=== PATIENT | female | born 1975 | race Hispanic/Latino ===

== ENCOUNTER 2021-03-19 11:00 | Emergency (ER) | payer SELFPAY ==
[2021-03-19 11:20] LABS: Urine Blood 3+ (Negative); Urine Glucose Negative (Negative); Urine Protein Negative (Negative); Urine Specific Gravity 1.015 (1.005-1.030)
--- NOTE | 2021-03-19 11:59 | RAD REPORT ---
EXAM DESCRIPTION: CT - Abdomen Pelvis Wo Contrast - 03/19/2021 11:50 am CLINICAL HISTORY: Abdominal pain. ABD PAIN COMPARISON: No comparisons TECHNIQUE: CT imaging of the abdomen and pelvis was performed without contrast. Solid organ, bowel a nd vascular assessment is limited due to lack of IV and oral contrast. All CT scans are performed using dose optimization technique as appropriate and may include automated exposure control or mA/KV adjustment according to patient size. FINDINGS: The lower lung raza are clear. The liver, spleen, pancreas, adrenal glands and left kidney are within normal limits for a limited no n-contrast examination.The right kidney is moderately atrophic. Cholecystectomy. No bowel obstruction, free air, free fluid or abscess. The appendix is normal. The osseous structures are within normal limits. IMPRESSION: No acute intra-abdominal or pelvic findings. A limited non-contrast examination was performed as detailed.
[2021-03-19 12:11] LABS: Basophils % 0.4 % (0-1.3); Hematocrit 40.5 % (36.0-45.0); Lymphocytes % 36.9 % (15.3-44.8); MPV 7.8 fL (7.6-11.3); RBC Red Blood Cell Count 4.82 M/uL (3.86-4.86)
[2021-03-19 12:40] LABS: Albumin 3.9 g/dL (3.4-5.0); Bilirubin Direct 0.2 mg/dL (0-0.2); Bilirubin Total 0.7 mg/dL (0.2-1.0); Potassium 4.2 mmol/L (3.5-5.1); Protein, Total 7.9 g/dL (6.4-8.2)
[2021-03-19] MEDS ORDERED: KETOROLAC 30 MG/ML INJ ONE (12:58)
--- NOTE | 2021-03-19 13:04 | EDPHYS ---
Physician Documentation [facility] Name: Abigail Jeffers Age: 45 yrs Sex: Female : 1975 Arrival Date: 03/19/2021 Time: 11:06 Bed 6 Private MD: ED Physician Mando Crouch HPI: 03/19 11:55 This 45 yrs old Female presents to ER via Ambulatory with complaints of Back Pain. jr8 11:55 This is a 45-year-old female patient that presented to the emergency room with sudden jr8 onset of low back pain radiating to the right abdomen. Patient stated that she is currently on her menstrual cycle and has been having heavier periods than normal. Denies any nausea, vomiting, diarrhea, fevers. Patient stated that she has had irregular heavier menstrual cycles as of recent and has seen her primary care for this and was told that she is premenopausal. Denies having back pain in the past with her other symptoms.. 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 - Social history:: Smoking status: Patient denies any tobacco usage or history of. ROS: 11:55 Cardiovascular: Negative for chest pain, palpitations, and edema, Respiratory: Negative jr8 for shortness of breath, cough, wheezing, and pleuritic chest pain, MS/Extremity: Negative for injury and deformity, Skin: Negative for injury, rash, and discoloration, Neuro: Negative for headache, weakness, numbness, tingling, and seizure. 11:55 Abdomen/GI: Positive for abdominal pain, Negative for nausea, vomiting, and diarrhea. 11:55 Back: Positive for pain at rest, pain with movement. 11:55 : Positive for vaginal bleeding, menstrual abnormality. Exam: 11:55 Cardiovascular: Regular rate and rhythm with a normal S1 and S2. No gallops, murmurs, jr8 or rubs. Normal PMI, no JVD. No pulse deficits. Respiratory: Lungs have equal breath sounds bilaterally, clear to auscultation and percussion. No rales, rhonchi or wheezes noted. No increased work of breathing, no retractions or nasal flaring. Skin: Warm, dry with normal turgor. Normal color with no rashes, no lesions, and no evidence of cellulitis. MS/ Extremity: Pulses equal, no cyanosis. Neurovascular intact. Full, normal range of motion. Neuro: Awake and alert, GCS 15, oriented to person, place, time, and situation. Cranial nerves II-XII grossly intact. Motor strength 5/5 in all extremities. Sensory grossly intact. 11:55 Constitutional: The patient appears alert, awake, in obvious pain. 11:55 Abdomen/GI: Inspection: abdomen appears normal, Bowel sounds: active, all quadrants, Palpation: soft, in all quadrants, moderate abdominal tenderness, in the suprapubic area and right lower quadrant, mass, is not appreciated, rebound tenderness, is not appreciated, voluntary guarding, is not appreciated, involuntary guarding, is not appreciated, no appreciated organomegaly, Indicators: McBurney's point is not tender, Dodson's sign is negative, Rovsing's sign is negative. 11:55 Back: pain, that is moderate, ROM is painful, with all movement, CVA tenderness, is absent, vertebral tenderness, is not appreciated. Vital Signs: 11:13 BP 153 / 90; Pulse 74; Resp 16; Temp 97.8; Pulse Ox 100% on R/A; Weight 67.13 kg; iw Height 5 ft. 2 in. (157.48 cm); Pain 10/10; 12:45 BP 123 / 69; Pulse 66; Resp 17; Pulse Ox 100% ; bp 13:22 BP 120 / 75; Pulse 66; Resp 17; Pulse Ox 100% ; bp 11:13 Body Mass Index 27.07 (67.13 kg, 157.48 cm) iw MDM: 11:22 Patient medically screened. jr8 13:02 Data reviewed: vital signs, nurses notes, lab test result(s), radiologic studies, CT jr8 scan. Data interpreted: Pulse oximetry: on room air is 100 %. Interpretation: normal. Counseling: I had a detailed discussion with the patient and/or guardian regarding: the historical points, exam findings, and any diagnostic results supporting the discharge/admit diagnosis, lab results, radiology results, the need for outpatient follow up, an OB/Gyne specialist, to return to the emergency department if symptoms worsen or persist or if there are any questions or concerns that arise at home. Special discussion: Based on the patient's Hx, exam, and Dx evaluation, there is no indication for emergent surgery or inpatient Tx. It is understood by the patient/guardian that if the Sx's persist or worsen they need to return immediately for re-evaluation. ED course: Discussed with patient and that this is most likely dysmenorrhea. No other acute abnormalities found on the CT scan or lab work. 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 Patient family good with this at this time and will come back if she were to worsen at any point time.. 03/19 11:20 Order name: Basic Metabolic Panel; Complete Time: 12:48 iw 03/19 11:20 Order name: CBC with Diff; Complete Time: 12:17 iw 03/19 11:20 Order name: Hepatic Function; Complete Time: 12:48 iw 03/19 11:20 Order name: Lipase; Complete Time: 12:48 iw 03/19 11:20 Order name: Urine Dipstick-Ancillary; Complete Time: 11:22 EDMS 03/19 11:21 Order name: Urine --Ancillary (enter results); Complete Time: 13:07 em1 03/19 11:20 Order name: IV Saline Lock; Complete Time: 11:46 iw 03/19 11:20 Order name: Labs collected and sent; Complete Time: 11:46 iw 03/19 11:20 Order name: Urine Dipstick-Ancillary (obtain specimen); Complete Time: 11:20 03/19 11:23 Order name: CT Abd/Pelvis - Without Contrast; Complete Time: 12:02 jr8 Administered Medications: 13:02 Drug: Ketorolac 15 mg Route: IVP; Site: left antecubital; bp 13:02 Follow up: Response: No adverse reaction bp Disposition: 17:25 Co-signature as Attending Physician, Mando Crouch MD I agree with the assessment and kdr plan of care. Disposition Summary: 03/19/21 13:03 Discharge Ordered Location: Home jr8 Problem: new jr8 Symptoms: have improved jr8 Condition: Stable jr8 Diagnosis - Dysmenorrhea, unspecified jr8 Followup: jr8 - With: Private Physician - When: 5 - 6 days - Reason: Recheck today's complaints, Continuance of care, Re-evaluation by your physician Discharge Instructions: - Discharge Summary Sheet jr8 - Dysmenorrhea jr8 Forms: - Medication Reconciliation Form jr8 - Thank You Letter jr8 - Antibiotic Education jr8 - Prescription Opioid Use jr8 Signatures: Dispatcher [employer] Mando Ware MD MD [facility] Elisa Shin RN RN Sid Dinh PA PA jr8 Steven Kelly, RN RN bp
--- NOTE | 2021-03-19 13:04 | ER ---
Nurse's Notes [facility] Name: Abigail Jeffers Age: 45 yrs Sex: Female : 1975 Arrival Date: 03/19/2021 Time: 11:06 Bed 6 Private MD: Diagnosis: Dysmenorrhea, unspecified Presentation: 03/19 11:13 Chief complaint: Patient states: edward back pain radiating to RLQ since Tuesday, started iw her period on Tuesday and is having heavy bleeding with clots, her last period lasted 3 weeks, also feels bloated. Coronavirus screen: At this time, the client does not indicate any symptoms associated with coronavirus-19. Ebola Screen: Patient negative for fever greater than or equal to 101.5 degrees Fahrenheit, and additional compatible Ebola Virus Disease symptoms Patient denies exposure to infectious person. Patient denies travel to an Ebola-affected area in the 21 days before illness onset. No symptoms or risks identified at this time. Initial Sepsis Screen: Does the patient meet any 2 criteria? No. Patient's initial sepsis screen is negative. Does the patient have a suspected source of infection? No. Patient's initial sepsis screen is negative. Risk Assessment: Do you want to hurt yourself or someone else? Patient reports no desire to harm self or others. Onset of symptoms was March 17, 2021. 11:13 Method Of Arrival: Ambulatory iw 11:13 Acuity: KISHAN 3 iw Triage Assessment: 11:20 General: Appears in no apparent distress. uncomfortable, Behavior is cooperative, bp appropriate for age, anxious. Pain: Complains of pain in low back area. EENT: No deficits noted. Neuro: Level of Consciousness is awake, alert, obeys commands, Oriented to Appropriate for age Gait is steady. Neuro: No deficits noted. Cardiovascular: Rhythm is sinus bradycardia. Respiratory: No deficits noted. GI: Abdomen is non-distended. : No signs and/or symptoms were reported regarding the genitourinary system. Derm: No deficits noted. Musculoskeletal: Circulation, motion, and sensation intact. Range of motion: intact in all extremities. 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 - Social history:: Smoking status: Patient denies any tobacco usage or history of. Screenin:51 Abuse screen: Denies threats or abuse. Denies injuries from another. Nutritional bp screening: No deficits noted. Tuberculosis screening: No symptoms or risk factors identified. Fall Risk None identified. Assessment: 11:20 General: General: SEE TRIAGE NOTE. bp 12:45 Reassessment: No changes from previously documented assessment. Patient and/or family bp updated on plan of care and expected duration. Pain level reassessed. Patient is alert, oriented x 3, equal unlabored respirations, skin warm/dry/pink. 13:22 Reassessment: PT D/C HOME AMBULATORY WITH FAMILY, DX WITH DYSMENORRHEA. bp Vital Signs: 11:13 BP 153 / 90; Pulse 74; Resp 16; Temp 97.8; Pulse Ox 100% on R/A; Weight 67.13 kg; iw Height 5 ft. 2 in. (157.48 cm); Pain 10/10; 12:45 BP 123 / 69; Pulse 66; Resp 17; Pulse Ox 100% ; bp 13:22 BP 120 / 75; Pulse 66; Resp 17; Pulse Ox 100% ; bp 11:13 Body Mass Index 27.07 (67.13 kg, 157.48 cm) iw ED Course: 11:06 Patient arrived in ED. as 11:14 Ignacio Sims, RN is Primary Nurse. jl7 11:17 Triage completed. iw 11:18 Arm band placed on. iw 11:22 Sid Dinh PA is PHCP. jr8 11:22 Mando Crouch MD is Attending Physician. jr8 11:30 Inserted saline lock: 20 gauge in left forearm, using aseptic technique. Blood bp collected. 11:44 Steven Kelly, RN is Primary Nurse. bp 11:46 CT Abd/Pelvis - Without Contrast Sent. bp 11:50 CT Abd/Pelvis - Without Contrast In Process Unspecified. EDMS 11:51 Patient has correct armband on for positive identification. Bed in low position. Call bp light in reach. Side rails up X2. 13:20 No provider procedures requiring assistance completed. IV discontinued, intact, bp bleeding controlled, No redness/swelling at site. Pressure dressing applied. Administered Medications: 13:02 Drug: Ketorolac 15 mg Route: IVP; Site: left antecubital; bp 13:02 Follow up: Response: No adverse reaction bp Outcome: 13:03 Discharge ordered by MD. alvarenga 13:20 Discharged to home ambulatory, with family. bp 13:20 Condition: stable 13:20 Discharge instructions given to patient, Instructed on discharge instructions, follow up and referral plans. Demonstrated understanding of instructions, follow-up care. 13:24 Patient left the ED. bp Signatures: Dispatcher [employer] EDMS Darlene Daniels Irene, RN RN iw Roszak, Josh, PA PA 8 Ignacio Sims RN RN jl7 Steven Kelly RN RN bp Corrections: (The following items were deleted from the chart) 13:22 11:51 General: bp bp
[2021-03-19 13:06] LABS: Urine Specific Gravity/Preg 1.015 (1.005-1.030)
[2021-03-19 13:29] VITALS: TEMP 97.8; O2SAT 100
[2021-03-19 13:32] VITALS: BP 120/75
== END 2021-03-19 13:24 | disposition home or self-care (01) ==
LOC: ER 11:00
DX: N94.6 Dysmenorrhea, unspecified (principal)
CPT/HCPCS: 36415; 74176; 80048; 80076; 81003; 81025; 83690; 85025; 96374; 99284

== ENCOUNTER 2022-04-05 11:50 | Emergency (ER) | payer SELFPAY ==
--- OUTSIDE RECORDS SUMMARY | 2022-04-05 11:51 | XMS REPORT | Continuity of Care Document ---
:1975 Author Organization [facility] t Address [address] [place] [address] Care Team Providers Name Role Phone Asked, No Pcp Primary Care Physician Unavailable Tom Olivares MD Attending Clinician Problems This patient has no known problems. Allergies, Adverse Reactions, Alerts This patient has no known allergies or adverse reactions. Social History Social Habit Start Date Stop Date Quantity Comments Source Sex Assigned At [birth year] [facility] 00:00:00 00:00:00 Smoking Status Start Date Stop Date Source Tobacco smoking consumption unknown [facility] Medications Ordered Filled Start Stop Current Ordering Indication Dosage Frequency Signature Comments Components Source Medication Medication Date Date Medication? Clinician (SIG) Name Name famotidine 2021- No 20mg Q.5D Take 1 Meth flaquita (PEPCID) 20 10-25 tablet (20 s t MG tablet 00:00: 04:59 mg total) Ho spita 00 :00 by mouth 2 l (two) times a day as needed for indigestio n or heartburn for up to 10 days. aluminum-ma 2021- No 15mL [id number] Take 15 mL [facility]ium 10-25 [id number] by mouth [address] hydroxide 00:00: 04:59 3D (three) [facility]osp [facility] (MAALOX) 00 :00 times a l 200-200 day before mg/5 mL meals for suspension 5 days. ondansetron 2021- No 4mg Q8H Take 1 Met hodi ODT 10-25 tablet (4 st (ZOFRAN-ODT 00:00: 04:59 mg total) [facility] 4 MG 00 :00 by mouth l disintegrat every 8 ing tablet (eight) hours as needed for nausea or vomiting for up to 5 days. Vital Signs Vital Name Observation Time Observation Value Comments Source Systolic blood 2021-10-26 00:20:00 117 mm[Hg] [facility] pressure Diastolic blood 2021-10-26 00:20:00 70 mm[Hg] [facility] pressure Heart rate 2021-10-26 00:20:00 84 /min [facility] Body temperature 2021-10-26 00:20:00 36.94 [place] [facility] Respiratory rate 2021-10-26 00:20:00 18 /min [facility] Body height 2021-10-26 00:20:00 157.5 cm [facility] Body weight 2021-10-26 00:20:00 68.04 kg [facility] BMI 2021-10-26 00:20:00 27.44 kg/m2 [facility] Oxygen saturation in 2021-10-26 00:20:00 95 /min [facility] Arterial blood by Pulse oximetry Procedures This patient has no known procedures. Encounters Start End Encounter Admission Attending Care Care Encounter Source Date/Time Date/Time Type Type Clinicians Facility Department ID 2021-10-25 2021-10-25 Emergency [facility], [id number] [facility] 19:22:00 23:34:00 [facility] [id number] 3.430.2.7 Hospit a [id number] l .8 2021-10-25 2021-10-25 Emergency [facility], [facility] [id number] [place] 00:00:00 00:00:[address] 2021-10-25 2021-10-25 Travel 1.2.840.1 [id number] [facility] 00:00:00 00:00:[id number] 3.430.2.7 0.2.7.3.698 Ho spita .[id number] 084.8 l .8 Results This patient has no known results.
[2022-04-05 13:31] LABS: Absolute Lymphocytes (CBC) 2.5 K/uL (0.7-4.9); Hematocrit 41.2 % (36.0-45.0); Lymphocytes % 46.4 % (15.3-44.8); MCV 83.7 fL (80-100); MPV 7.8 fL (7.6-11.3); RBC Red Blood Cell Count 4.92 M/uL (3.86-4.86)
[2022-04-05 13:46] LABS: Albumin 3.9 g/dL (3.4-5.0); Bilirubin Total 0.4 mg/dL (0.2-1.0); Protein, Total 8.1 g/dL (6.4-8.2); Troponin High Sensitivity 4.8 pg/mL (<58.9)
[2022-04-05] MEDS ORDERED: NA CHLORIDE 0.9% 1,000 ML ONE (13:55)
[2022-04-05 14:03] LABS: SARS-COV-2 RT PCR NEGATIVE (NEGATIVE)
[2022-04-05 14:09] LABS: Urine Blood Trace-intact (Negative); Urine Glucose Negative (Negative); Urine Protein Negative (Negative); Urine Specific Gravity >=1.030 (1.005-1.030)
[2022-04-05] MEDS ORDERED: KETOROLAC 30 MG/ML INJ ONE (14:09)
--- NOTE | 2022-04-05 15:16 | RAD REPORT ---
EXAM DESCRIPTION: CT - Abdomen Pelvis Wo Contrast - 04/05/2022 2:57 pm CLINICAL HISTORY: Abdominal pain COMPARISON: 2020 TECHNIQUE: Computed axial tomography of the abdomen and pelvis was obtained. IV and oral contrast we re not requested. All CT scans are performed using dose optimization technique as appropriate and may include automated exposure control or mA/KV adjustment according to patient size. FINDINGS: The evaluation of solid organs, vessels and bowel is limited secondary to the lack of con trast administration. The liver, spleen, pancreas, adrenals and left kidney appear grossly normal. The right kidney is small without significant change The appendix is normal. There is no evidence of diverticulitis. Cholecystectomy No adnexal mass. Small umbilical hernia IMPRESSION: No acute abnormality is displayed.
--- NOTE | 2022-04-05 15:17 | RAD REPORT ---
EXAM DESCRIPTION: Yimi Single View04/05/2022 1:34 pm CLINICAL HISTORY: Cough COMPARISON: none FINDINGS: The lungs appear clear of acute infiltrate. The heart is normal size IMPRESSION: No acute abnormalities displayed
--- NOTE | 2022-04-05 16:10 | ER ---
Nurse's Notes [facility] Name: Abigail Jeffers Age: 46 yrs Sex: Female : 1975 Arrival Date: 04/05/2022 Time: 11:53 Bed 4 Private MD: Diagnosis: Abdominal pain, Generalized Presentation: 04/05 12:11 Chief complaint: Patient states: Cough, congestion, CP. back pain, abdominal pain since jl7 yesterday. Coronavirus screen: Client presents with at least one sign or symptom that may indicate coronavirus-19. Ebola Screen: No symptoms or risks identified at this time. Initial Sepsis Screen: Does the patient meet any 2 criteria? No. Patient's initial sepsis screen is negative. Does the patient have a suspected source of infection? No. Patient's initial sepsis screen is negative. Risk Assessment: Do you want to hurt yourself or someone else? Patient reports no desire to harm self or others. Onset of symptoms was April 04, 2022. 12:11 Method Of Arrival: Ambulatory 7 12:11 Acuity: KISHAN 3 jl7 Triage Assessment: 12:12 General: Appears in no apparent distress. uncomfortable, Behavior is calm, cooperative, jl7 appropriate for age. Pain: Complains of pain in sore throat, abdomen Pain currently is 10 out of 10 on a pain scale. GI: Patient currently denies diarrhea, nausea, vomiting. 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 - Social history:: Smoking status: Patient denies any tobacco usage or history of. Screenin:50 Abuse screen: Denies threats or abuse. Nutritional screening: No deficits noted. aa5 Tuberculosis screening: No symptoms or risk factors identified. Fall Risk None identified. Assessment: 13:50 General: Appears uncomfortable, Behavior is calm, cooperative. Pain: Complains of pain aa5 in back of head, back, chest, and abdomen Pain does not radiate. Pain currently is 10 out of 10 on a pain scale. Pain began 1 day ago. Is continuous. Neuro: Garcia Agitation-Sedation Scale (RASS): 0 - Alert and Calm Level of Consciousness is awake, alert, obeys commands, Oriented to person, place, time, situation. Cardiovascular: Heart tones S1 S2 present Rhythm is regular. Respiratory: Reports cough that is non-productive, Airway is patent Respiratory effort is even, unlabored, Respiratory pattern is regular, symmetrical, Breath sounds are clear bilaterally. GI: Abdomen is round Bowel sounds present X 4 quads. Abd is soft and non tender X 4 quads. Reports bloating, Patient currently denies nausea, vomiting. : No signs and/or symptoms were reported regarding the genitourinary system. EENT: No signs and/or symptoms were reported regarding the EENT system. Derm: Skin is pink, warm \\T\\ dry. Musculoskeletal: Range of motion: intact in all extremities. 13:55 Reassessment: Pt ambulatory to restroom with steady gait to provide urine specimen. . aa5 14:03 Reassessment: Pt requesting pain medication, BOOM WORKER was notified. . aa5 14:14 Reassessment: Awaiting CT scan . aa5 14:55 Reassessment: Patient is alert, oriented x 3, equal unlabored respirations, skin aa5 warm/dry/pink. Pt to CT scan via wheelchair . 16:00 Reassessment: Patient is alert, oriented x 3, equal unlabored respirations, skin aa5 warm/dry/pink. Patient states feeling better. Vital Signs: 12:11 BP 136 / 90; Pulse 92; Resp 17; Temp 98.1; Pulse Ox 100% ; Weight 68.49 kg; Height 5 jl7 ft. 2 in. (157.48 cm); Pain 10/10; 14:10 BP 135 / 91; Pulse 72; Resp 16 S; Pulse Ox 100% on R/A; aa5 16:25 BP 138 / 90; Pulse 74; Resp 16 S; Temp 98.0(TE); Pulse Ox 100% on R/A; Pain 4/10; aa5 12:11 Body Mass Index 27.62 (68.49 kg, 157.48 cm) 7 ED Course: 11:53 Patient arrived in ED. as 11:57 [facility] Richmond [facility]-C [facility] kb 11:57 Mando Crouch MD is Attending Physician. kb 12:12 Triage completed. jl7 12:12 Arm band placed on right wrist. jl7 12:21 EKG done, by ED staff, reviewed by Kalyn WOODSON. jl7 13:09 PT IV started, labs drawn, and COVID/Flu A\\T\\B swab collected; PT escorted to lobby. em1 13:09 CBC with Diff Sent. em1 13:09 CMP Sent. em1 13:09 Lipase Sent. em1 13:09 Troponin High Sensitivity Sent. em1 13:09 Initial lab(s) drawn, by ny, sent to lab. Inserted saline lock: 22 gauge in right em1 antecubital area, using aseptic technique. Blood collected. 13:36 Chest Single View XRAY In Process Unspecified. EDMS 13:50 Patient has correct armband on for positive identification. Bed in low position. Call aa5 light in reach. Side rails up X 1. Adult w/ patient. Pulse ox on. NIBP on. 13:50 Maintain EMS IV. Dressing intact. Site clean \\T\\ dry. Gauge \\T\\ site: 22G to R AC . aa 5 14:00 Obdulia Dasilva, RN is Primary Nurse. aa5 14:57 Abdomen In Process Unspecified. EDMS 16:25 No provider procedures requiring assistance completed. IV discontinued, intact, aa5 bleeding controlled, No redness/swelling at site. Pressure dressing applied. Administered Medications: 13:55 Drug: NS 0.9% 1000 ml Route: IV; Rate: 1 bolus; Site: right antecubital; aa5 16:00 Follow up: IV Status: Completed infusion; IV Intake: 1000ml aa5 14:05 CANCELLED (Duplicate Order): NS 0.9% 1000 ml IV at 1000 ml once kb 14:11 Drug: Ketorolac 15 mg Route: IVP; Site: right antecubital; aa5 14:20 Follow up: Response: No adverse reaction aa5 Medication: 16:25 VIS not applicable for this client. aa5 Intake: 16:00 IV: 1000ml; Total: 1000ml. aa5 Outcome: 16:09 Discharge ordered by . kb 16:25 Discharged to home ambulatory, with significant other. aa5 16:25 Condition: stable 16:25 Discharge instructions given to patient, significant other, Instructed on discharge instructions, follow up and referral plans. Demonstrated understanding of instructions, follow-up care. 16:27 Patient left the ED. ss Signatures: Dispatcher [employer] EDKalyn English, AIR COMPRESSOR ENGINEER-C AIR COMPRESSOR ENGINEER-Ckb Darlene Daniels Eric em1 Obdulia Dasilva, RN RN aa5 Юлия Michelle RN RN Ignacio Sims RN RN jl7 Corrections: (The following items were deleted from the chart) 12:16 12:12 Home Meds: None; jl7 jl7 12:16 12:12 PMHx: None; jl7 jl7 13:11 13:09 PT IV started, labs drawn, and COVID/Flu A\\T\\B swab collected; PT excorted to [facility] em1 em1
--- NOTE | 2022-04-05 16:10 | EDPHYS ---
Physician Documentation [facility] Name: Abigail eJffers Age: 46 yrs Sex: Female : 1975 Arrival Date: 04/05/2022 Time: 11:53 Bed 4 Private MD: ED Physician Mando Crouch HPI: 04/05 20:01 This 46 yrs old Female presents to ER via Ambulatory with complaints of kb Abdominal Pain, Back Pain. 20:01 The patient presents with abdominal pain in the epigastric area. Onset: The kb symptoms/episode began/occurred yesterday. The symptoms do not radiate. Associated signs and symptoms: Pertinent positives: chest pain. The symptoms are described as constant. Modifying factors: The symptoms are alleviated by nothing, the symptoms are aggravated by nothing. Severity of pain: At its worst the pain was mild in the emergency department the pain is unchanged. The patient has not experienced similar symptoms in the past. The patient has not recently seen a physician. Pt reports chest pain and epigastric pain that started yesterday. 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 - Social history:: Smoking status: Patient denies any tobacco usage or history of. ROS: 20:01 Constitutional: Negative for fever, chills, and weight loss. kb 20:01 Cardiovascular: Positive for chest pain, Negative for edema, orthopnea, palpitations, paroxysmal nocturnal dyspnea. 20:01 Abdomen/GI: Positive for abdominal pain, Negative for nausea, vomiting, and diarrhea. 20:01 Neuro: Positive for headache. 20:01 All other systems are negative. Exam: 20:00 Constitutional: This is a well developed, well nourished patient who is awake, alert, kb and in no acute distress. Head/Face: Normocephalic, atraumatic. ENT: Moist Mucous membranes Cardiovascular: Regular rate and rhythm with a normal S1 and S2. No gallops, murmurs, or rubs. No pulse deficits. Respiratory: Respirations even and unlabored. No increased work of breathing. Talking in full sentences Skin: Warm, dry with normal turgor. Normal color. MS/ Extremity: Pulses equal, no cyanosis. Neurovascular intact. Full, normal range of motion. Neuro: Awake and alert, GCS 15, oriented to person, place, time, and situation. Moves all extremities. Normal gait. 20:00 Abdomen/GI: Inspection: abdomen appears normal, Bowel sounds: normal, Palpation: soft, in all quadrants, mild abdominal tenderness, in all quadrants. Vital Signs: 12:11 BP 136 / 90; Pulse 92; Resp 17; Temp 98.1; Pulse Ox 100% ; Weight 68.49 kg; Height 5 jl7 ft. 2 in. (157.48 cm); Pain 10/10; 14:10 BP 135 / 91; Pulse 72; Resp 16 S; Pulse Ox 100% on R/A; aa5 16:25 BP 138 / 90; Pulse 74; Resp 16 S; Temp 98.0(TE); Pulse Ox 100% on R/A; Pain 4/10; aa5 12:11 Body Mass Index 27.62 (68.49 kg, 157.48 cm) jl7 MDM: 12:12 Patient medically screened. kb 16:05 Data reviewed: vital signs, nurses notes. Data interpreted: Pulse oximetry: on room air kb is 100 %. Interpretation: normal. Counseling: I had a detailed discussion with the patient and/or guardian regarding: the historical points, exam findings, and any diagnostic results supporting the discharge/admit diagnosis, lab results, radiology results, the need for outpatient follow up, a family practitioner, to return to the emergency department if symptoms worsen or persist or if there are any questions or concerns that arise at home. 04/05 12:13 Order name: CBC with Diff; Complete Time: 13:35 kb 04/05 12:13 Order name: CMP; Complete Time: 13:47 kb 04/05 12:13 Order name: Lipase; Complete Time: 13:47 kb 04/05 12:13 Order name: COVID-19/FLU A+B; Complete Time: 14:04 kb 04/05 12:13 Order name: Troponin High Sensitivity; Complete Time: 13:47 kb 04/05 14:09 Order name: Urine Dipstick-Ancillary; Complete Time: 14:18 EDMS 04/05 12:13 Order name: Chest Single View XRAY; Complete Time: 15:21 kb 04/05 12:13 Order name: EKG; Complete Time: 12:13 kb 04/05 14:10 Order name: Urine --Ancillary (enter results) bd 04/05 14:57 Order name: Abdomen ; Complete Time: 15:21 EDMS 04/05 12:13 Order name: IV Saline Lock; Complete Time: 13:09 kb 04/05 12:13 Order name: Labs collected and sent; Complete Time: 13:09 kb 04/05 12:13 Order name: Urine Dipstick-Ancillary (obtain specimen); Complete Time: 14:11 kb 04/05 12:13 Order name: Urine Test (obtain specimen); Complete Time: 14:11 kb 04/05 12:13 Order name: EKG - Nurse/Tech; Complete Time: 12:21 kb Administered Medications: 13:55 Drug: NS 0.9% 1000 ml Route: IV; Rate: 1 bolus; Site: right antecubital; aa5 16:00 Follow up: IV Status: Completed infusion; IV Intake: 1000ml aa5 14:05 CANCELLED (Duplicate Order): NS 0.9% 1000 ml IV at 1000 ml once kb 14:11 Drug: Ketorolac 15 mg Route: IVP; Site: right antecubital; aa5 14:20 Follow up: Response: No adverse reaction aa5 Disposition: 17:15 Co-signature as Attending Physician, Mando Crouch MD I agree with the assessment and kdr plan of care. Disposition Summary: 04/05/22 16:09 Discharge Ordered Location: Home kb Condition: Stable kb Diagnosis - Abdominal pain, Generalized kb Followup: kb - With: Emergency Department - When: As needed - Reason: Worsening of condition Followup: kb - With: Private Physician - When: 2 - 3 days - Reason: Recheck today's complaints, Continuance of care, Re-evaluation by your physician Discharge Instructions: - Discharge Summary Sheet kb - Abdominal Pain, Adult, [id number] kb Forms: - Medication Reconciliation Form kb - Thank You Letter kb - Antibiotic Education kb - Prescription Opioid Use kb Signatures: Dispatcher [employer] EDMI Kalyn Richmond FNP-C FNP-Blade Mando Crouch MD MD kdr Obdulia Dasilva, RN RN aa5 Ignacio Sims RN RN jl7 Corrections: (The following items were deleted from the chart) 12:16 12:12 Home Meds: None; jl7 jl7 12:16 12:12 PMHx: None; roxi7 jl7 14:05 14:05 NS 0.9% 1000 ml IV at 1000 ml once ordered. kb kb 14:57 12:13 Abdomen Pelvis W Con+CT.RAD.BRZ ordered. EDMS EDMS
[2022-04-05 17:35] VITALS: TEMP 98.1; O2SAT 100
[2022-04-05 17:41] VITALS: BP 135/91
[2022-04-05 17:42] LABS: Urine Specific Gravity/Preg >1.030 (1.005-1.030)
--- NOTE | 2022-04-06 08:38 | EKG ---
Test Date: 2022-04-05 Test Time: 12:20:03 Crm Marketing Specialist: ABDOUL MEASUREMENT RESULTS: Intervals: Rate: 82 PA: 140 QRSD: 80 QT: 380 QTc: 443 [place]: P: 58 PA: 140 QRS: 55 T: 77 INTERPRETIVE STATEMENTS: Normal sinus rhythm Nonspecific T wave abnormality Abnormal ECG No previous ECG available for comparison Electronically Signed On 04-06-22 08:34:49 SURVEYING OR SPATIAL SCIENCE TECHNICIAN by Parrish Del Valle
== END 2022-04-05 16:27 | disposition home or self-care (01) ==
LOC: ER 11:50
DX: R10.84 Generalized abdominal pain (principal); R05.9 Cough, unspecified; Z20.822 Contact with and (suspected) exposure to COVID-19
CPT/HCPCS: 0240U; 36415; 71045; 74176; 80053; 81003; 81025; 83690; 84484; 85025; 93005; 96361; 96374; 99284; J7030